=== PATIENT | female | born 1965 | race Caucasian/White ===

== ENCOUNTER 2016-09-22 13:25 | Emergency (ER) | payer BC ==
--- NOTE | ~2016-09-22 | EKG ---
PATIENT: ANGELICA HINSON UNIT #: [id number] Ventricular Rate: 67 BPM Atrial Rate: 67 BPM P-R Interval: 136 ms QRS Duration: 90 ms Q-T Interval: 384 ms QTC Calculation(Bezet): 405 ms P [place]: 50 degrees Calculated R [place]: 17 degrees Calculated T [place]: 47 degrees Diagnosis Line: Normal sinus rhythm Diagnosis Line: Normal ECG Diagnosis Line: No previous ECGs available Diagnosis Line: Confirmed by LUDWIN DHALIWAL MD ([id number]) on 09/25/2016 Diagnosis Line: 11:11:47 PM INTERPRETING MD: ISRA CORDOVA
--- NOTE | ~2016-09-22 | CR72 ---
[facility] A Service of [facility] RADIOLOGY TEXT RESULTS PATIENT: ANGELICA HINSON LOCATION: SED : 63 UNIT #: [id number] AGE: [address]: Angus Ca MD SEX: F ORDER DR: [id number] [place] [id number] MR#: [id number] Acc #: [id number] NAME: ANGELICA HINSON : 1965 SEX: F STUDY DATE/TIME: 09/22/2016 UNIT: SED ROOM: STUDY DESCRIPTION: CR Chest Single View Portable Attending Physician: Angus Ca M.D. Ordering Physician: Angus Ca M.D. Primary Care Physician: Gabriela Deluna A.P.R.N. MEDICAL IMAGING REPORT This report is preliminary unless electronic signature is present. EXAM Chest, portable, 09/22/2016, 1248 hours. HISTORY 51-year-old complaining of epigastric pain and pressure since yesterday. COMPARISON 11/05/2014 FINDINGS Portable upright chest demonstrates normal cardiac, mediastinal, and hilar contours. There are stable benign calcified granulomatous changes. There is no definite acute pulmonary density or pleural effusion. IMPRESSION Stable benign calcified granulomatous change. No definite acute cardiopulmonary finding or change from 11/05/2014. Dictated by... Abimbola Lopez M.D. THIS IS AN ELECTRONICALLY VERIFIED REPORT Abimbola Lopez M.D. at 09/22/2016 2:35 PM Nissa TD: 09/22/2016 14:20 JOB #: [id number] MEDICAL IMAGING REPORT Page 1 of 1
[2016-09-22 12:31] LABS: BASOPHIL# 0.1 X10e3 (0-0.3); BASOPHIL% 0.8 % (0-2.5); EOSINOPHIL# 0.4 X10e3 (0-0.7); EOSINOPHIL% 5.6 % (0.0-7.0); HEMATOCRIT 47.1 % (35.0-45.0); HEMOGLOBIN 15.4 gm/dL (12.0-16.0); LYMPHOCYTE# 1.8 X10e3 (1.0-3.5); LYMPHOCYTE% 25.4 % (17.0-45.0); MEAN CORPUSCULAR HEMOGLOBIN 28.8 PG (28-34); MEAN CORPUSCULAR HGB CONC 32.7 g/dL (30-36); MEAN PLATELET VOLUME 8.1 FL (6.5-11.5); MONOCYTE# 0.6 X10e3 (0-1.0); MONOCYTE% 9.1 % (3.0-12.0); NEUTROPHIL# 4.1 X10e3 (1.5-7.1); NEUTROPHIL% 59.1 % (40-75); PLATELET COUNT 298 X10e3 (140-420); RED BLOOD COUNT 5.35 X10e (3.90-5.30); RED CELL DISTRIBUTION WIDTH 13.8 % (11.0-15.5); WHITE BLOOD COUNT 6.9 X10e3 (4.0-10.5)
[2016-09-22 12:33] LABS: DIFF IND NO
[2016-09-22 12:46] LABS: ALBUMIN SERUM 4.2 g/dL (3.5-5.0); BILIRUBIN,TOTAL 0.5 mg/dL (0.2-2.0); CALCIUM SERUM 9.4 mg/dL (8.4-10.2); CREATININE SERUM 0.5 mg/dL (0.6-1.4); GLOM FILT RATE Estimated 111.3 mL/min (>60); MAGNESIUM 2.3 mg/dL (1.6-3.0); POTASSIUM 3.7 mmol/L (3.5-5.1); PROTEIN TOTAL SERUM 8.1 g/dL (6.0-8.3)
[2016-09-22 12:50] LABS: POC - CKMB <1.0 ng/mL (0.0-7.9); POC - MYOGLOBIN 52.8 ng/mL (0.0-169.0); POC - TROPONIN <0.05 ng/mL (<=0.05)
[2016-09-22 13:02] LABS: URINE SOURCE CLEAN CATCH
[2016-09-22 13:05] LABS: MICRO INDICATED? NO; URINE APPEARANCE CLEAR; URINE BILIRUBIN NEG (NEG); URINE BLOOD NEG (NEG); URINE COLOR YELLOW; URINE GLUCOSE NEG (NORM); URINE KETONE NEG (NEG); URINE LEUKOCYTE ESTERASE NEG (NEG); URINE NITRATE NEG (NEG); URINE PROTEIN NEG (NEG); URINE UROBILINOGEN 0.2 MG/DL (NORM)
[~2016-09-22 13:25] MED LIST: ALBUTEROL17 GM INH; ALLERGY MED; BLOOD PRESSURE MED; HYCODAN60 ML 5MG/ PO; MEDROL4 MG/DOSE- PO; NO MEDICATIONS; ZITHROMAX PO
== END 2016-09-22 14:12 | disposition home or self-care (01) ==
LOC: SED 13:25
PROVIDERS: Emergency Medicine
DX: K21.9 Gastro-esophageal reflux disease without esophagitis (principal); R10.13 Epigastric pain
CPT/HCPCS: 36415; 71010; 80053; 81003; 82553; 83690; 83735; 83874; 84484; 85025; 86677; 93005; 96374; 99284; C9113